=== PATIENT | female | born 1950 | race Caucasian/White ===

== ENCOUNTER → 2019-11-07 | Outpatient (CLI) | payer OTHER ==
[~2019-11-07] MED LIST: Lysine1000 MG PO; MAGOXI400 PO
== END | disposition home or self-care (01) ==
LOC: LAB SHORT 16:12 → PLD 16:12
DX: D48.5 Neoplasm of uncertain behavior of skin (principal)
CPT/HCPCS: 88305

== ENCOUNTER → 2020-07-11 | Outpatient (CLI) | payer OTHER | END | disposition home or self-care (01) | LOC: LAB 08:05 → LAB SHORT 08:05 | DX: D48.5 Neoplasm of uncertain behavior of skin (principal) | CPT/HCPCS: 88305 ==

== ENCOUNTER 2021-03-03 12:02 | Day surgery (SDC) | payer OTHER ==
[~2021-03-03] VITALS: Ht 162.6 cm; Wt 82.1 kg
[2021-03-03] MEDS ORDERED: IBUP600 (13:10)
[2021-03-03] MEDS ORDERED: AMLO5 (13:12)
[2021-03-03] MEDS ORDERED: OCUVITE BLUE L1 EACH (13:13)
[2021-03-03] MEDS ORDERED: FISH OIL 1,2001 EAC1 (13:16)
== END 2021-03-03 15:12 | disposition home or self-care (01) ==
LOC: ORSCSDS 12:02
PROVIDERS: Internal Medicine Gastroenterology
PROC: 0DBK8ZX Excision of Ascending Colon, Via Natural or Artificial Opening Endoscopic, Diagnostic (ICD-10-PCS; principal; 2021-03-03 13:15)
DX: Z12.11 Encounter for screening for malignant neoplasm of colon (principal); Z86.010 Personal history of colon polyps; D12.2 Benign neoplasm of ascending colon; K57.30 Diverticulosis of large intestine without perforation or abscess without bleeding; E66.9 Obesity, unspecified; Z68.31 Body mass index [BMI] 31.0-31.9, adult; Z79.899 Other long term (current) drug therapy
CPT/HCPCS: 82947; 88305; J2704; J7120